=== PATIENT | male | born 1985 | race Caucasian/White ===

== ENCOUNTER 2016-08-26 01:18 | Outpatient (CLI) | payer SELFPAY | END 2016-08-26 01:19 | disposition EMS.NT | DX: S01.81XA Laceration without foreign body of other part of head, initial encounter (principal); S01.312A Laceration without foreign body of left ear, initial encounter; S05.92XA Unspecified injury of left eye and orbit, initial encounter; Y09 Assault by unspecified means; Y92.511 Restaurant or cafe as the place of occurrence of the external cause ==

== ENCOUNTER 2017-05-22 07:21 | Outpatient (CLI) | payer BC ==
[2017-05-22 13:19] LABS: BASOPHILS % (AUTO) 0.4 %; EOSINOPHILS # (AUTO) 0.5 10^3/uL (0.0-0.7); EOSINOPHILS % (AUTO) 8.1 %; HGB - HEMOGLOBIN 15.9 g/dL (14.0-18.0); LYMPHOCYTES # (AUTO) 2.1 10^3/uL (1.5-3.5); MEAN CORPUSCULAR HEMOGLOBIN 30.2 pg (27.0-31.0); MEAN CORPUSCULAR HGB CONC 33.8 g/dL (32.0-36.0); MEAN CORPUSCULAR VOLUME 89.5 fL (80.0-94.0); MEAN PLATELET VOLUME 10.1 fL (7.4-11.4); MONOCYTES # (AUTO) 0.6 10^3/uL (0.0-1.0); MONOCYTES % (AUTO) 9.9 %; NEUTROPHILS # (AUTO) 2.5 10^3/uL (1.5-6.6); NEUTROPHILS % (AUTO) 44.6 %; PLT - PLATELET COUNT 160 10^3/uL (130-450); RED BLOOD COUNT 5.26 10^6/uL (4.70-6.10); RED CELL DISTRIBUTION WIDTH 13.3 % (12.0-15.0); WHITE BLOOD COUNT 5.6 x10^3/uL (4.8-10.8)
[2017-05-22 13:35] LABS: ALBUMIN 4.6 g/dL (3.2-5.5); ALBUMIN/GLOBULIN RATIO 1.5 (1.0-2.2); ALKALINE PHOSPHATASE 61 IU/L (42-121); ALT ALANINE AMINOTRANSFERASE 25 IU/L (10-60); AST ASPARTATE AMINOTRANSFERASE 19 IU/L (10-42); BILIRUBIN,TOTAL 0.8 mg/dL (0.2-1.0); BUN - BLOOD UREA NITROGEN 18 mg/dL (6-20); CALCIUM 9.5 mg/dL (8.5-10.3); CARBON DIOXIDE - CO2 27 mmol/L (21-32); CHLORIDE 101 mmol/L (101-111); CHOL/HDL RATIO 4.8 (<5.0); CHOLESTEROL 222 mg/dL; CREATININE 1.2 mg/dL (0.6-1.2); GFR - MDRD 69 (>89); GLUCOSE 95 mg/dL (70-100); HDL CHOLESTEROL 46 mg/dL; LDL CHOLESTEROL,CALCULATED 125 mg/dL; LDL/HDL RATIO 2.7 (<3.6); SODIUM 139 mmol/L (135-145); TOTAL PROTEIN 7.7 g/dL (6.7-8.2); VLDL CHOLESTEROL 51 mg/dL
== END 2017-05-22 07:22 | disposition home or self-care (01) ==
LOC: LAB.F 07:21 → EDBD 07:21 → LAB.F 07:22
PROVIDERS: ATTEND Physician Assistant Medical
DX: Z00.00 Encounter for general adult medical examination without abnormal findings (principal); Z13.89 Encounter for screening for other disorder; E55.9 Vitamin D deficiency, unspecified; Z13.29 Encounter for screening for other suspected endocrine disorder
CPT/HCPCS: 36415; 80053; 80061; 82306; 84443; 85025

== ENCOUNTER 2018-05-04 00:52 | Emergency (ER) | payer SELFPAY ==
--- NOTE | 2018-05-04 00:54 | ED Physician Documentation ---
History of Present Illness - Stated complaint Stated Complaint: ALLERGIC REACTION - History obtained from History obtained from: EMS - History of Present Illness Timing: Prior to arrival Improved by: SQ epinephrine and IV benadryl (both given by medics) - Additonal information Additional information: patient is brought in by ambulance. Significant other called 911 due to patient having an allergic reaction. Patient reportedly ate a cookie containing peanuts; patient has a known peanut allergy. After eating the cookie, patient rapidly became dyspneic, and had generalized swelling and erythema, most notably about the face. Upon medics arrival, patient had a pulse ox of 70%, and was unconscious. medics noted severe swelling and generalized erythema, particularly of the face and around the eyes. Medics administered oxygen, 0.3 mg of subcutaneous epinephrine, 125mg IV solu-medrol, and 25 mg of intravenous Benadryl. Patients pulse ox improved to the upper 90s. Patient gradually has become more awake, and alert on route to hospital. He is responding to some questions and follows commands, but is terse in his answers. His erythema and facial swelling have nearly resolved. on my HPI, patient is mostly uncooperative with providing information. He does admit to eating a cookie with peanuts as per the medical report. He does confirm he has a peanut allergy. He seems angry and allows physical exam, but will not allow his blood pressure to be taken initially until my gets here. when I ask him other questions and trying to get a complete history of present illness, he answers most questions by asking me is my here yet. Review of Systems Unable to obtain: Uncooperative (limited; answers some questions, but mostly tells me he wants to wait until his is here) Respiratory: reports: Dyspnea (resolved (denies dyspnea at this time)) PD PAST MEDICAL HISTORY - Living Situation Living Situation: reports: With spouse/s.o. Living Arrangement: reports: At home PD ED PE NORMAL - Vitals Vital signs reviewed: Yes - General General: No acute distress, Well developed/nourished, Other (awake, alert, does not cooperate and thus cannot determine level of orientation. however, he gives his full name, acknowledges he is in the ER, and does not make any statements to indicate disorientation or confusion) - HEENT HEENT: Atraumatic, PERRL, EOMI, Moist mucous membranes - Neck Neck: Supple, no meningeal sign - Cardiac Cardiac: RRR, No murmur - Respiratory Respiratory: No respiratory distress, Clear bilaterally - Abdomen Abdomen: Soft, Non tender - Derm Derm: Normal color, Warm and dry, No rash Results - Vitals Vitals: Oxygen O2 Source Room air PD MEDICAL DECISION MAKING - ED course Complexity details: considered differential, d/w patient ED course: patient was stable upon arrival to emergency department. He was angry and did not seem interested in participating in his HPI, physical exam, and strongly refused any testing in the emergency department. He had lost control of his bowels on route to emergency department, and wanted to use the bathroom to clean himself up before I could talk to him further about my recommendation for observation in the emergency department and some basic testing. Upon returning from the bathroom, he removed his IV and walked out of the emergency department. Subsequent to this, his arrived and drove him home. Departure - Departure Disposition: ED [place] Clinical Impression: Anaphylaxis Condition: Stable Discharge Date/Time: 05/04/18 01:38
[2018-05-04 01:01] VITALS: BP 160/49
== END 2018-05-04 01:38 | disposition left against medical advice (07) ==
LOC: EDUNIT# → ED 00:52
DX: T78.01XA Anaphylactic reaction due to peanuts, initial encounter (principal)
CPT/HCPCS: 80048; 80320; 85025; 99283